=== PATIENT | female | born 1945 | race Caucasian/White ===

== ENCOUNTER → 2020-01-23 | Outpatient (CLI) | payer MEDICARE, OTHER ==
--- NOTE | 2020-01-24 07:22 | MM ---
Reason for exam: additional evaluation requested from prior study. Last mammogram was performed 11 years and 9 months ago. History: Patient is postmenopausal and has history of other cancer at age 64. Family history of breast cancer in maternal cousin at age 40. Took hormonal contraceptives for 12 years beginning at age 23. Took estrogen for 7 years. Took progesterone for 7 years. Physical Findings: Nurse Summary: 0.7cm nodule in the left breast at 7 o'clock (nurse TM). MG 3D Diag Mammo W/Cad VLADIMIR Bilateral CC and MLO view(s) were taken. Prior study comparison: June 16, 2018, mammogram. June 14, 2017, mammogram. April 15, 2016, mammogram. April 09, 2008, bilateral diagnostic digital mammog. The breast tissue is extremely dense which could obscure a lesion on mammography. No suspicious abnormality on the right breast. Left palpable asymmetry per nursing and left upper outer quadrant posterior depth focal asymmetry both appear similar to prior exams. These results were verbally communicated with the patient and result sheet given to the patient on 01/23/20. ASSESSMENT: Incomplete: need additional imaging evaluation, BI-RAD 0 RECOMMENDATION: Ultrasound of both breasts.
--- NOTE | 2020-01-24 07:25 | USB ---
Reason for exam: additional evaluation requested from abnormal screening. History: Patient is postmenopausal and has history of other cancer at age 64. Family history of breast cancer in maternal cousin at age 40. Took hormonal contraceptives for 12 years beginning at age 23. Took estrogen for 7 years. Took progesterone for 7 years. US Breast Limited BILAT Right limited breast ultrasound including focal area of concern, retroareolar and axilla demonstrates a 9 x 5 x 9mm lobular, cystic lesion at 1 o'clock, prior 7 x 5 x 6mm, appears more cystic. Left complete breast ultrasound includes all four quadrants, the retroareolar region and axilla. Finding demonstrates a 3 x 3 x 3mm oval lesion at 1 o'clock, prior 3 x 2 x 3mm, likely small cyst and a 3 x 3 x 4mm oval, cystic lesion at 3 o'clock, likely small cyst. Dense tissue throughout. These results were verbally communicated with the patient and result sheet given to the patient on 01/23/20. ASSESSMENT: Probably benign, BI-RAD 3 RECOMMENDATION: Ultrasound of the left breast in 6 months. (1 o'clock and 3 o'clock)
== END | disposition home or self-care (01) ==
LOC: RADMAMWWP 13:31
PROVIDERS: ATTEND Obstetrics & Gynecology
DX: N60.09 Solitary cyst of unspecified breast (principal); R92.8 Other abnormal and inconclusive findings on diagnostic imaging of breast
CPT/HCPCS: 77066; 76642; G0279; 77062

== ENCOUNTER → 2020-08-22 | Outpatient (CLI) | payer MEDICARE ==
--- NOTE | 2020-08-22 15:01 | US ---
EXAMINATION TYPE: US carotid duplex BILAT DATE OF EXAM: 08/22/2020 COMPARISON: NONE CLINICAL HISTORY: R92.8 Abn mammogram; Hyperlipidemia E78.5. EXAM MEASUREMENTS: RIGHT: Peak Systolic Velocity (PSV) cm/sec ----- Right CCA: 76.5 ----- Right ICA: 82.3 ----- Right ECA: 116.0 ICA/CCA ratio: 1.1 RIGHT: End Diastole cm/sec ----- Right CCA: 13.7 ----- Right ICA: 21.0 ----- Right ECA: 10.2 LEFT: Peak Systolic Velocity (PSV) cm/sec ----- Left CCA: 74.4 ----- Left ICA: 106.0 ----- Left ECA: 72.9 ICA/CCA ratio: 1.43 LEFT: End Diastole cm/sec ----- Left CCA: 12.7 ----- Left ICA: 25.3 ----- Left ECA: 6.0 VERTEBRALS (direction of flow): Right Vertebral: Antegrade Left Vertebral: Antegrade Rhythm: Normal Burton scale images show mild to minimal peripheral plaque bilateral carotid bulb level. Velocity measu rements and ratios remain within normal limits bilaterally. IMPRESSION: No hemodynamically significant stenosis seen in either internal carotid artery. Criteria for Assigning % of Stenosis / Diameter reduction (Estimation based on the indirect measurements of the internal carotid artery velocities (ICA PSV). 1. Normal (no stenosis)=ICA PSV < 125 cm/s: ratio < 2.0: ICA EDV<40 cm/s. 2. Less than 50% stenosis=ICA PSV < 125 cm/s: ratio < 2.0: ICA EDV<40 cm/s. 3. 50 to 69% stenosis=ICA PSV of 125 to 230 cm/s: ration 2.0 ? 4.0: ICA EDV 40-100 cm/s. 4. Greater than 70% stenosis to near occlusion= ICA PSV > 230 cm/s: ratio > 4.0: ICA EDV > 100 cm/s. 5. Near occlusion= ICA PSV velocities may be low or undetectable: variable ratio and ICA EDV. 6. Total occlusion=unable to detect flow.
--- NOTE | 2020-08-23 09:00 | USB ---
Reason for exam: follow-up at short interval from prior study. History: Patient is postmenopausal and has history of other cancer at age 64. Family history of breast cancer in maternal cousin at age 40. Took hormonal contraceptives for 12 years beginning at age 23. Took estrogen for 7 years. Took progesterone for 7 years. Physical Findings: Nurse did not find any significant physical abnormalities on exam. US Breast Limited LT Left limited breast ultrasound including focal area of concern, retroareolar and axilla demonstrates a 3 x 3 x 3mm oval, cystic lesion at 3 o'clock and a 3 x 2 x 3mm oval, cystic lesion at 3 o'clock. These results were verbally communicated with the patient and result sheet given to the patient on 08/22/20. ASSESSMENT: Benign, BI-RAD 2 RECOMMENDATION: Routine screening mammogram of both breasts in 5 months. Back on schedule for December 2020.
== END | disposition home or self-care (01) ==
LOC: RADUSWWP 14:16
PROVIDERS: ATTEND Specialist
DX: N60.12 Diffuse cystic mastopathy of left breast (principal); E78.5 Hyperlipidemia, unspecified
CPT/HCPCS: 93880

== ENCOUNTER → 2021-04-09 | Outpatient (CLI) | payer MEDICARE ==
--- NOTE | 2021-04-09 13:32 | BD ---
EXAMINATION TYPE: Axial Bone Density DATE OF EXAM: 04/09/2021 COMPARISON: NONE CLINICAL HISTORY: Height: 5 ft 1 1/2 IN Weight: 96 FRAX RISK QUESTIONS: Alcohol (3 or more units per day): NO Family History (Parent hip fracture): NO Glucocorticoids (More than 3mos): NO (Ex: prednisone, prednisolone, methylprednisolone, dexamethasone, and hydrocortisone). History of Fracture in Adulthood: NO Secondary Osteoporosis: 1. Type 1 Diabetes: NO 2. Hyperthyroidism: NO 3. Menopause before 45: NO 4. Malnutrition: NO 5. 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 Bone mineral density as measured about the Lumbar spine is: ----- L1-L4(G/cm2): 1.203 T Score Values are as follows: ----- L2: -0.3 ----- L3: 0.2 ----- L4: 1.0 ----- L1-L4: 0.2 Bone mineral density has: INCREASED 19.9 % since study of: 2007 Bone mineral density about the R hip (g/cm2): 0.857 Bone mineral density about the L hip (g/cm2): 0.845 T Score values are as follows: -----R Neck: -1.3 -----L Neck: -1.4 -----R Total: -1.0 -----L Total: -0.9 Bone mineral density has: INCREASED 5.2 % since study of: 2007 IMPRESSION: No evidence for osteoporosis or osteopenia. NOTE: T-SCORE=SD OF THE YOUNG ADULT MEAN.
== END | disposition home or self-care (01) ==
LOC: RADBDWWP 12:32
PROVIDERS: ATTEND Specialist
DX: M85.88 Other specified disorders of bone density and structure, other site (principal)
CPT/HCPCS: 77080

== ENCOUNTER → 2021-04-09 | Outpatient (CLI) | payer MEDICARE ==
--- NOTE | 2021-04-10 13:50 | MM ---
Reason for exam: screening (asymptomatic). Last mammogram was performed 1 year and 3 months ago. History: Patient is postmenopausal and has history of other cancer at age 64. Family history of breast cancer in maternal cousin at age 40. Took hormonal contraceptives for 12 years beginning at age 23. Taking estrogen for 7 years beginning at age 50. Taking progesterone for 7 years beginning at age 50. Physical Findings: A clinical breast exam by your physician is recommended on an annual basis and results should be correlated with mammographic findings. MG 3D Screening Mammo W/Cad Bilateral CC and MLO view(s) were taken. Prior study comparison: January 23, 2020, bilateral MG 3d diag mammo w/cad VLADIMIR. June 16, 2018, mammogram. The breast tissue is extremely dense which could obscure a lesion on mammography. Benign calcifications. No significant changes when compared with prior studies. ASSESSMENT: Benign, BI-RAD 2 RECOMMENDATION: Routine screening mammogram of both breasts in 1 year.
== END | disposition home or self-care (01) ==
LOC: RADMAMWWP 12:33
PROVIDERS: ATTEND Obstetrics & Gynecology
DX: Z12.31 Encounter for screening mammogram for malignant neoplasm of breast (principal); Z80.3 Family history of malignant neoplasm of breast; Z78.0 Asymptomatic menopausal state
CPT/HCPCS: 77063; 77067

== ENCOUNTER → 2022-04-14 | Outpatient (CLI) | payer MEDICARE ==
--- NOTE | 2022-04-14 13:09 | MM ---
Reason for Exam: Screening (asymptomatic). Last screening mammogram was performed 12 month(s) ago. Patient History: Menarche at age 11. First Full-Term at age 22. Hysterectomy at age 40. Postmenopausal. Other cancer, age 64. Currently using Estrogen, beginning at age 50 for 7 years. Currently using Progesterone, beginning at age 50 for 7 years. Hormonal Contraceptives for 12 years from age 23 until age 35. Maternal cousin had breast cancer, age 40. Risk Values: Debbie 5 year model risk: 1.6%. NCI Lifetime model risk: 3.0%. Film Views: Bilateral CC views were taken. Bilateral MLO views were taken. Prior Study Comparison: 06/16/2018 Screening Mammogram, Unknown. 01/23/2020 Bilateral Diagnostic Mammogram, [facility]. 04/09/2021 Bilateral Screening Mammogram, [facility]. Tissue Density: The breast tissue is extremely dense which could obscure a lesion on mammography. Findings: Analyzed By CAD. Focal asymmetry far posterior lateral left breast appears more defined from prior. Additional far posterior central outer right breast asymmetric density on CC also appears more defined. These may represent superimposition shadow but further evaluation is recommended. Overall Assessment: Incomplete: need additional imaging evaluation, BI-RAD 0 Management: Diagnostic Mammogram of both breasts. Additional views both breasts. On the right, spot 3-D CC and 3-D lateral views (including far posterior tissues). On the left, spot 3D CC, spot 3D MLO, and 3-D lateral views.
== END | disposition home or self-care (01) ==
LOC: RADMAMWWP 11:00
PROVIDERS: ATTEND Obstetrics & Gynecology
DX: Z12.31 Encounter for screening mammogram for malignant neoplasm of breast (principal); Z78.0 Asymptomatic menopausal state; Z80.3 Family history of malignant neoplasm of breast
CPT/HCPCS: 77063; 77067

== ENCOUNTER → 2023-04-20 | Outpatient (CLI) | payer MEDICARE ==
--- NOTE | 2023-04-20 17:57 | BD ---
EXAMINATION TYPE: Axial Bone Density DATE OF EXAM: 04/20/2023 CLINICAL HISTORY: 77 years old Female. ICD-10 CODE: M85.80 Osteopenia Height: 61 Weight: 96.1 FRAX RISK QUESTIONS: Alcohol (3 or more units per day): no Family History (Parent hip fracture): no Glucocorticoids (More than 3mos): no History of Fracture in Adulthood: no Secondary Osteoporosis: 1. Type 1 Diabetes: no 2. Hyperthyroidism: no 3. Menopause before 45: no 4. Malnutrition: no 5. Chronic liver disease: no Rheumatoid Arthritis: no Current Tobacco Use: no RISK FACTORS HISTORY OF: Hip Fracture (Right/Left): no Spine Fracture: no History of Wrist Fracture: Lt Wrist age 10 Surgery to Spine/Hip(right/left)/Wrist (right/left): no Family History of Osteoporosis: Mother, Maternal Aunt Active: yes Diet low in dairy products/other sources of calcium: yes Postmenopausal woman: yes Take estrogen and/or progesterone medications: Estradial and Progesterone How long: Past 27 years Lost more than 2 inches in height since high school: no Frequent falls: no Poor Health: no Hyperparathyroidism: no Adrenal Insufficiency: no MEDICATIONS: Prednisone or other steroids: no 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 Bone mineral density as measured about the Lumbar spine is: ----- L1-L4(G/cm2): 1.253 T Score Values are as follows: ----- L1: -0.4 ----- L2: 0.1 ----- L3: 0.6 ----- L4: 1.6 ----- L1-L4: 0.36 Z Score Values are as follows: ----- L1: 2.1 ----- L2: 2.6 ----- L3: 3.1 ----- L4: 4.1 ----- L1-L4: 3.1 Bone mineral density has: increased 4.2 % since study of: 04/09/2021 Bone mineral density about the R hip (g/cm2): 0.883 Bone mineral density about the L hip (g/cm2): 0.876 T Score values are as follows: -----R Neck: -0.9 -----L Neck: -1.2 -----R Total: -1.0 -----L Total: -1.0 Z Score values are as follows: -----R Neck: 1.7 -----L Neck: 1.3 -----R Total: 1.4 -----L Total: 1.4 Bone mineral density has: decreased -0.7 % since study of: 04/09/2021 FRAX%s: The graph provided illustrates a 9.4 % chance for a major osteoporotic fx and a 2.1% chance f or the hips probability for fx in 10 years time. IMPRESSION: Osteopenia (T Score between -2.5 and -1). There is slightly increased risk of fracture and the patient may be considered for treatment. Re-Screen 2-5 years. NOTE: T-SCORE=SD OF THE YOUNG ADULT MEAN.
--- NOTE | 2023-04-21 10:07 | MM ---
Reason for Exam: Screening (asymptomatic). Last screening mammogram was performed 12 month(s) ago. Patient History: Menarche at age 11. First Full-Term at age 22. Hysterectomy at age 40. Postmenopausal. Currently using Estrogen, beginning at age 50 for 7 years. Currently using Progesterone, beginning at age 50 for 7 years. Hormonal Contraceptives for 12 years from age 23 until age 35. Maternal cousin had breast cancer, age 40. Risk Values: Debbie 5 year model risk: 1.5%. NCI Lifetime model risk: 2.8%. Prior Study Comparison: 04/09/2021 Bilateral Screening Mammogram, [facility]. 04/14/2022 Bilateral MG 3D screening mammo w/cad, [facility]. 04/16/2022 Bilateral MG 3D work up w/cad [facility], [facility]. Tissue Density: The breast tissue is extremely dense which could obscure a lesion on mammography. Findings: Analyzed By CAD. There is no suspicious group of microcalcifications or new suspicious mass in either breast. Overall Assessment: Negative, BI-RAD 1 Management: Screening Mammogram of both breasts in 1 year. Some advise bilateral breast ultrasound surveillance in patients with background extreme dense tissue. Patient should continue monthly self-breast exams. A clinical breast exam by your physician is recommended on an annual basis. This exam should not preclude additional follow-up of suspicious palpable abnormalities. Note on Debbie scores and lifetime risk: 1. A Debbie score greater than 3% is considered moderate risk. If this is the case, consider specialist referral to assess eligibility for a risk reducing agent. 2. If overall lifetime risk for the development of breast cancer is 20% or higher, the patient may qualify for future screening with alternating mammogram and breast MRI. Electronically signed and approved by: Tyler Pride M.D.
== END | disposition home or self-care (01) ==
LOC: RADBDWWP 12:36
PROVIDERS: ATTEND Obstetrics & Gynecology
DX: Z12.31 Encounter for screening mammogram for malignant neoplasm of breast (principal); M85.89 Other specified disorders of bone density and structure, multiple sites
CPT/HCPCS: 77063; 77067; 77080

== ENCOUNTER → 2024-05-16 | Outpatient (CLI) | payer MEDICARE ==
--- NOTE | 2024-05-17 10:22 | MM ---
Reason for Exam: Screening (asymptomatic). Last mammogram was performed 1 year(s) and 1 month(s) ago. Patient History: Menarche at age 11. First Full-Term at age 22. Hysterectomy at age 40. Postmenopausal. Currently using Estrogen, beginning at age 50 for 7 years. Currently using Progesterone, beginning at age 50 for 7 years. Hormonal Contraceptives for 12 years from age 23 until age 35. Maternal cousin had breast cancer, age 40. Risk Values: Debbie 5 year model risk: 1.5%. NCI Lifetime model risk: 2.5%. Prior Study Comparison: 04/14/2022 Bilateral MG 3D screening mammo w/cad, [facility]. 04/16/2022 Bilateral MG 3D work up w/cad VLADIMIR, [facility]. 04/20/2023 Bilateral MG 3D screening mammo w/cad, [facility]. Tissue Density: The breasts are extremely dense, which lowers the sensitivity of mammography. Findings: Analyzed By CAD. There is no suspicious group of microcalcifications or new suspicious mass in either breast. Overall Assessment: Benign, BI-RAD 2 Management: Screening Mammogram of both breasts in 1 year. . Patient should continue monthly self-breast exams. A clinical breast exam by your physician is recommended on an annual basis. This exam should not preclude additional follow-up of suspicious palpable abnormalities. Note on Debbie scores and lifetime risk: 1. A Debbie score greater than 3% is considered moderate risk. If this is the case, consider specialist referral to assess eligibility for a risk reducing agent. 2. If overall lifetime risk for the development of breast cancer is 20% or higher, the patient may qualify for future screening with alternating mammogram and breast MRI. Electronically signed and approved by: Bijan Thompson M.D. Radiologis
== END | disposition home or self-care (01) ==
LOC: RADMAMWWP 10:09
PROVIDERS: ATTEND Family Medicine
DX: Z12.31 Encounter for screening mammogram for malignant neoplasm of breast (principal); R92.333 Mammographic heterogeneous density, bilateral breasts; Z80.3 Family history of malignant neoplasm of breast; Z78.0 Asymptomatic menopausal state
CPT/HCPCS: 77063; 77067

== ENCOUNTER → 2025-05-24 | Outpatient (CLI) | payer MEDICARE ==
--- NOTE | 2025-05-24 09:50 | MM ---
Reason for Exam: Screening (asymptomatic). Last screening mammogram was performed 12 month(s) ago. Patient History: Menarche at age 11. First Full-Term at age 22. Hysterectomy at age 40. Postmenopausal. Currently using Estrogen, beginning at age 50 for 7 years. Currently using Progesterone, beginning at age 50 for 7 years. Hormonal Contraceptives for 12 years from age 23 until age 35. Maternal cousin had breast cancer, age 40. Risk Values: Debbie 5 year model risk: 1.5%. NCI Lifetime model risk: 2.3%. Prior Study Comparison: 04/16/2022 Bilateral MG 3D work up w/cad [facility], [facility]. 04/20/2023 Bilateral MG 3D screening mammo w/cad, [facility]. 05/16/2024 Bilateral MG 3D screening mammo w/cad, [facility]. Tissue Density: The breasts are heterogeneously dense, which may obscure small masses. Findings: Analyzed By CAD. Right breast: There is no suspicious group of microcalcifications or new suspicious mass. Left breast: There is no suspicious group of microcalcifications or new suspicious mass. Overall Assessment: Negative, BI-RAD 1 Management: Screening Mammogram of both breasts in [address] [facility] will attempt to contact patient to return for supplemental views and ultrasound if indicated. Patient should continue monthly self-breast exams. A clinical breast exam by your physician is recommended on an annual basis. This exam should not preclude additional follow-up of suspicious palpable abnormalities. Note on Debbie scores and lifetime risk: 1. A Debbie score greater than 3% is considered moderate risk. If this is the case, consider specialist referral to assess eligibility for a risk reducing agent. 2. If overall lifetime risk for the development of breast cancer is 20% or higher, the patient may qualify for future screening with alternating mammogram and breast MRI. [facility], , 05/24/2025 9:47 AM. Electronically signed and approved by: Alvarez Bermudez DO
--- NOTE | 2025-05-24 15:26 | BD ---
EXAMINATION TYPE: Axial Bone Density DATE OF EXAM: 05/24/2025 CLINICAL HISTORY: 79 years old Female. ICD-10 CODE: M85.80 OSTEOPENIA , Additional History: Height: 60.4 Weight: 94 FRAX RISK QUESTIONS: 3. Menopause before 45: no, about 49 yrs old RISK FACTORS tiny, low body weight HISTORY OF: MEDICATIONS: hx of bladder ca, with chemo treatment, vit d, Thyroid Medications: yes, mp120, mp130?, for over 20 yrs now EXAM MEASUREMENTS: Bone mineral densitometry was performed using the [employer] System. Bone mineral density as measured about the Lumbar spine is: ----- L1-L4(G/cm2): 1.287 T Score Values are as follows: ----- L1: -0.1 ----- L2: 0.3 ----- L3: 0.9 ----- L4: 2.0 ----- L1-L4: 0.9 Z Score Values are as follows: ----- L1: 2.5 ----- L2: 2.9 ----- L3: 3.5 ----- L4: 4.6 ----- L1-L4: 3.5 Bone mineral density has: Increased 2.7% since study of: 04.20.2023 Bone mineral density about the R hip (g/cm2): 0.884 Bone mineral density about the L hip (g/cm2): 0.913 T Score values are as follows: -----R Neck: -0.9 -----L Neck: -1.2 -----R Total: -1.0 -----L Total: -0.7 Z Score values are as follows: -----R Neck: 1.8 -----L Neck: 1.5 -----R Total: 1.6 -----L Total: 1.8 Bone mineral density has: Increased 2.2% since study of: 04.20.2023 FRAX%s: The graph provided illustrates a 9.5% chance for a major osteoporotic fx and a 2.3% chance fo r the hips probability for fx in 10 years time. IMPRESSION: Osteopenia (T Score between -2.5 and -1). There is slightly increased risk of fracture and the patient may be considered for treatment. Re-Screen 2-5 years. NOTE: T-SCORE=SD OF THE YOUNG ADULT MEAN. [facility], , 05/24/2025 3:24 PM
== END | disposition home or self-care (01) ==
LOC: RADMAMWWP 09:22
PROVIDERS: ATTEND Family Medicine
DX: Z12.31 Encounter for screening mammogram for malignant neoplasm of breast (principal); R92.333 Mammographic heterogeneous density, bilateral breasts; M85.89 Other specified disorders of bone density and structure, multiple sites; Z78.0 Asymptomatic menopausal state; Z80.3 Family history of malignant neoplasm of breast; Z92.0 Personal history of contraception
CPT/HCPCS: 77063; 77067; 77080